=== PATIENT | female | born 1975 | race Native Hawaiian/Other Pacific Islander ===

== ENCOUNTER 2022-09-17 12:57 | Outpatient (CLI) | payer OTHER | END 2022-09-17 21:23 | disposition home or self-care (01) | LOC: RAD 12:57 | PROVIDERS: ATTEND Nurse Practitioner Family | DX: Z13.820 Encounter for screening for osteoporosis (principal) ==

== ENCOUNTER 2022-09-28 11:15 | Outpatient (CLI) | payer OTHER | END 2022-09-28 18:58 | disposition home or self-care (01) | LOC: RAD 11:15 | PROVIDERS: ATTEND Nurse Practitioner Family | DX: S22.32XD Fracture of one rib, left side, subsequent encounter for fracture with routine healing (principal); Y92.89 Other specified places as the place of occurrence of the external cause ==